=== PATIENT | female | born 1995 | race Caucasian/White ===

== ENCOUNTER 2020-12-06 21:02 | Observation (INO) | payer BC ==
[2020-12-06 22:34] LABS: BILIRUBIN,URINE 1+ (NEGATIVE); BLOOD, URINE NEGATIVE (NEGATIVE); CLARITY/URINE CLOUDY (CLEAR); COLOR,URINE YELLOW (YELLOW); GLUCOSE,URINE NEGATIVE (NEGATIVE); KETONES,URINE NEGATIVE (NEGATIVE); LEUKOCYTE ESTERASE ,URINE NEGATIVE (NEGATIVE); NITRITE, URINE NEGATIVE (NEGATIVE); PROTEIN URINE 1+ (NEGATIVE); UROBILINOGEN,URINE 0.2 (0.2-1.0)
[2020-12-06 22:50] LABS: BACTERIA,URINE MODERATE /HPF (None Seen); RBC,URINE 0-3 /HPF (0-3)
[2020-12-06 22:51] LABS: MUCUS,URINE 2+ /LPF (None Seen); URIC ACID CRYSTALS,URINE 0-10 /HPF (None Seen)
== END 2020-12-06 23:51 | disposition home or self-care (01) ==
LOC: SPU 21:02
PROVIDERS: ADMIT Specialist; ATTEND Specialist
DX: O26.893 Other specified pregnancy related conditions, third trimester (principal); R03.0 Elevated blood-pressure reading, without diagnosis of hypertension; R07.81 Pleurodynia; Z3A.37 37 weeks gestation of pregnancy; Z79.899 Other long term (current) drug therapy
CPT/HCPCS: 81000; 81002; 87086; G0378

== ENCOUNTER 2020-12-18 15:10 | Inpatient (IN) | payer BC, SELFPAY ==
[~2020-12-18] VITALS: Ht 167.6 cm; Wt 66.2 kg
[2020-12-18] MEDS ORDERED: NALBUPHINE HCL 10 MG/ML AMP IM PRN (21:30)
[2020-12-18] MEDS ORDERED: OXYTOCIN/0.9 % SODIUM CHLORIDE 1,000 ML IV SCH (21:30)
[2020-12-18] MEDS ORDERED: DINOPROSTONE 10 MG SUPP VG ONE (21:30)
[2020-12-18 22:17] LABS: BASOPHILS % (AUTO) 0.1 % (0.0-2.0); EOSINOPHILS # (AUTO) 0.1 K/uL (0.0-0.4); EOSINOPHILS % (AUTO) 0.7 % (0.0-4.0); HEMATOCRIT 33.3 % (36-48); HEMOGLOBIN 11.2 g/dL (12.0-16.0); LYMPHOCYTES # (AUTO) 2.9 K/uL (1.0-5.5); LYMPHOCYTES % (AUTO) 27.4 % (20.5-51.5); MEAN CORPUSCULAR HEMOGLOBIN 28 pg (27-31); MEAN CORPUSCULAR HGB CONC 34 % (32-36); MEAN CORPUSCULAR VOLUME 82 fL (79.0-98.0); MONOCYTES # (AUTO) 0.7 K/uL (0.0-1.0); MONOCYTES % (AUTO) 6.2 % (1.7-9.3); NEUTROPHILS % (AUTO) 65.6 % (40.0-70.0); PLATELET COUNT (AUTO) 239 K/uL (130-430); RED BLOOD CELL COUNT(AUTO) 4.08 MIL/uL (4.2-6.2); RED CELL DISTRIBUTION WIDTH 15.7 % (9.0-15.0); WHITE BLOOD COUNT (AUTO) 10.7 K/uL (4.8-10.8)
[2020-12-19 03:29] VITALS: BP_SYST 146
[2020-12-19] MEDS ORDERED: CALCIUM CARBONATE 500 MG/ TAB.CHEW PO SCH (13:30)
[2020-12-19] MEDS ORDERED: CALCIUM CARBONATE 500 MG/ TAB.CHEW PO PRN (14:00)
[2020-12-19] MEDS: NALBUPHINE HCL 10 MG/ML AMP IVP PRN (17:49)
[2020-12-19] MEDS ORDERED: LIDOCAINE JELLY 5 ML TUBE MM ONE (18:30)
[2020-12-19] MEDS ORDERED: TEMAZEPAM 7.5 MG CAPSULE PO PRN (20:15)
[2020-12-19] MEDS: LR 1,000 ML IV SCH (23:18)
[2020-12-20] MEDS: NALBUPHINE HCL 10 MG/ML AMP IVP PRN (07:30)
[2020-12-20] MEDS: LR 1,000 ML IV SCH ×2 (07:42→08:50)
[2020-12-20] MEDS ORDERED: ROPIVACAINE HCL/PF 0.2% 200 ML ONE (07:52)
[2020-12-20] MEDS ORDERED: fentaNYL CITRATE/PF 100 MCG/2 ML AMP ONE (07:52)
[2020-12-20] MEDS ORDERED: NALOXONE HCL 0.4 MG/ML AMP (NARCAN) IVP PRN (15:30)
[2020-12-20] MEDS ORDERED: WITCH HAZEL LEAF 1 MED.PAD MED.PAD TP PRN (15:30)
[2020-12-20] MEDS ORDERED: HYDROCORTISONE 0.5% CREAM 28.4 GM CREAM.GM. TP PRN (15:30)
[2020-12-20] MEDS ORDERED: OXYTOCIN/0.9 % SODIUM CHLORIDE 1,000 ML IV ONE (15:30)
[2020-12-20] MEDS ORDERED: RHO(D) IMMUNE GLOBULIN/MALTOSE 1500 UNITS/1.3 ML (WINHRO) IM PRN (15:30)
[2020-12-20] MEDS ORDERED: DIPH-TET-PERTUS Vaccine 0.5 ML VIAL (ADACEL) I.M. PRN (15:30)
[2020-12-20] MEDS ORDERED: ANUSOL 1 EA SUPP.RECT (PREPARATION H) RC PRN (15:30)
[2020-12-20] MEDS ORDERED: OXYCODONE/ACETAMINOPHEN 5-325 TABLET PO PRN ×2 (15:30)
[2020-12-20] MEDS ORDERED: DERMOPLAST SPRAY TP PRN (15:30)
[2020-12-20] MEDS ORDERED: HYDROcodone/ACETAMIN 5-325 MG TAB (NORCO/ VICODIN) PO PRN (15:30)
[2020-12-20] MEDS ORDERED: OXYTOCIN/0.9 % SODIUM CHLORIDE 1,000 ML IV SCH (15:30)
[2020-12-20] MEDS ORDERED: LANOLIN 7 GM OINT. TP PRN (15:30)
[2020-12-20] MEDS ORDERED: MEASLES,MUMPS&RUBELLA VACC/PF 12500 UNIT/0.5 ML VIAL SUBQ PRN (15:30)
[2020-12-20] MEDS ORDERED: METHYLERGONOVINE MALEATE 0.2 MG TABLET PO PRN (15:30)
[2020-12-20] MEDS ORDERED: ACETAMINOPHEN 325 MG TABLET PO PRN (15:45)
[2020-12-20] MEDS: IBUPROFEN 600 MG TABLET PO SCH (17:58)
[2020-12-20] MEDS ORDERED: SENNOSIDES/DOCUSATE SODIUM 1 TAB TABLET(SENOKOT-S) PO SCH (21:00)
[2020-12-20] MEDS ORDERED: TEMAZEPAM 15 MG CAPSULE PO PRN (21:00)
[2020-12-21] MEDS: IBUPROFEN 600 MG TABLET PO SCH ×4 (00:26→18:06)
[2020-12-21 06:36] VITALS: BP_SYST 123
[2020-12-21 08:00] LABS: BASOPHILS % (AUTO) 0.3 % (0.0-2.0); EOSINOPHILS # (AUTO) 0.1 K/uL (0.0-0.4); EOSINOPHILS % (AUTO) 0.5 % (0.0-4.0); HEMATOCRIT 30.9 % (36-48); HEMOGLOBIN 10.4 g/dL (12.0-16.0); LYMPHOCYTES # (AUTO) 3.8 K/uL (1.0-5.5); LYMPHOCYTES % (AUTO) 22.8 % (20.5-51.5); MEAN CORPUSCULAR HEMOGLOBIN 28 pg (27-31); MEAN CORPUSCULAR HGB CONC 34 % (32-36); MEAN CORPUSCULAR VOLUME 82 fL (79.0-98.0); MONOCYTES % (AUTO) 6.2 % (1.7-9.3); NEUTROPHILS # (AUTO) 11.6 K/uL (1.8-7.7); NEUTROPHILS % (AUTO) 70.2 % (40.0-70.0); PLATELET COUNT (AUTO) 219 K/uL (130-430); RED BLOOD CELL COUNT(AUTO) 3.76 MIL/uL (4.2-6.2); RED CELL DISTRIBUTION WIDTH 15.7 % (9.0-15.0); WHITE BLOOD COUNT (AUTO) 16.6 K/uL (4.8-10.8)
[2020-12-21] MEDS ORDERED: DOCUSATE SODIUM 100 MG CAPSULE PO SCH (09:00)
[2020-12-21] MEDS ORDERED: MINERAL OIL 30 ML UDC PO ONE (23:29)
== END 2020-12-21 23:30 | disposition home or self-care (01) | DRG 806 ==
LOC: SPU 20:52
PROVIDERS: ADMIT Specialist; ATTEND Specialist
PROC: 10D07Z6 Extraction of Products of Conception, Vacuum, Via Natural or Artificial Opening (ICD-10-PCS; principal; 2020-12-20)
PROC: 0UQGXZZ Repair Vagina, External Approach (ICD-10-PCS; 2020-12-20)
PROC: 3E0R3BZ Introduction of Anesthetic Agent into Spinal Canal, Percutaneous Approach (ICD-10-PCS; 2020-12-20)
PROC: 00HU33Z Insertion of Infusion Device into Spinal Canal, Percutaneous Approach (ICD-10-PCS; 2020-12-20)
DX: O24.420 Gestational diabetes mellitus in childbirth, diet controlled (principal); O71.4 Obstetric high vaginal laceration alone; Z37.0 Single live birth; O13.4 Gestational [pregnancy-induced] hypertension without significant proteinuria, complicating childbirth; Z20.822 Contact with and (suspected) exposure to COVID-19; O99.214 Obesity complicating childbirth; E66.01 Morbid (severe) obesity due to excess calories; Z3A.39 39 weeks gestation of pregnancy
CPT/HCPCS: 36415; 81002; 82947; 82962; 85025; 86592; 86886; 86900; 86901; 94760; J2300; J2590; J3010